=== PATIENT | female | born 1970 | race African-American/Black ===

== ENCOUNTER 2018-12-30 08:47 | Inpatient (IN) | payer MEDICAID ==
[~2018-12-30] VITALS: Ht 157.5 cm; Wt 81.4 kg
[2018-12-30] MEDS ORDERED: SODIUM CHLORIDE 0.9% 1,000 ML IV ONE (10:53)
[2018-12-30] MEDS ORDERED: FAMOTIDINE 20MG/2ML VIAL IV STA (10:53)
[2018-12-30] MEDS ORDERED: KETOROLAC 30MG/ML VIAL IV STA (10:53)
[2018-12-30] MEDS ORDERED: MAGNESIUM/ALUMINUM HYDROXIDE/SIMETHICONE 30ML UDC PO STA (10:53)
[2018-12-30] MEDS ORDERED: ONDANSETRON HCL 4MG/2ML INJ IV STA ×2 (10:53→14:09)
[2018-12-30] MEDS ORDERED: DICYCLOMINE 10 MG/5 ML ORAL SYR PO STA (10:53)
[2018-12-30 11:10] LABS: CLARITY URINE CLOUDY (CLEAR); COLOR URINE DARK YELLOW (YELLOW); KETONES URINE TRACE (NEGATIVE); LEUKOCYTE ESTERASE URINE NEGATIVE (NEGATIVE); NITRITE URINE NEGATIVE (NEGATIVE); OCCULT BLOOD URINE NEGATIVE (NEGATIVE); PH URINE 5.5 (4.5-8.0); PROTEIN URINE 1+ (NEGATIVE); SPECIFIC GRAVITY URINE 1.028 (1.005-1.030)
[2018-12-30 11:42] LABS: BASOPHILS % 0.3 % (0.0-2.0); EOSINOPHILS % 1.8 % (0.0-5.0); HEMATOCRIT. 42.6 % (36.0-48.0); HEMOGLOBIN. 14.8 g/dL (12.0-16.0); LYMPHOCYTES % 29.1 % (20.0-50.0); MEAN CORPUSCULAR HEMOGLOBIN 32.5 pg (28.0-32.0); MEAN CORPUSCULAR VOLUME 93.5 fL (81.0-99.0); MEAN PLATELET VOLUME 7.4 fl (7.4-10.4); MONOCYTES % 8.7 % (2.0-8.0); NEUTROPHILS % 60.1 % (40.0-76.0); PLATELET 268 x1000/uL (130-400); RED BLOOD CELL COUNT 4.56 mill/uL (4.2-5.4); RED CELL DISTRIBUTION WIDTH 13.7 % (11.6-14.6)
[2018-12-30 11:44] LABS: CHLORIDE 104 mEq/L (98-107)
[2018-12-30] MEDS ORDERED: MORPHINE SULFATE 4 MG/ML CPJ (NOT FOR IM USE) IV STA (14:09)
[2018-12-30] MEDS ORDERED: DOCUSATE SODIUM 100MG CAPSULE PO PRN (20:30)
[2018-12-30] MEDS ORDERED: CLONIDINE 0.1MG TABLET PO PRN (20:30)
[2018-12-30] MEDS ORDERED: ACETAMINOPHEN 325MG TABLET PO PRN (20:30)
[2018-12-30] MEDS ORDERED: MAGNESIUM/ALUMINUM HYDROXIDE/SIMETHICONE 30ML UDC PO PRN (20:30)
[2018-12-30] MEDS ORDERED: ONDANSETRON HCL 4MG/2ML INJ IV PRN (20:30)
[2018-12-30] MEDS ORDERED: IPRATROPIUM/ALBUTEROL 0.5-3(2.5)MG/3ML NEB INH PRN (20:30)
[2018-12-30] MEDS: HYDROCODONE/ACETAMINOPHEN 5/325MG TABLET PO PRN (20:37)
[2018-12-30 21:41] VITALS: BP 133/67
[2018-12-30] MEDS ORDERED: FAMO-135 PO (23:38)
[2018-12-30 23:40] VITALS: BP 133/67
[2018-12-31] VITALS (7 sets, daily range): BP systolic 104–125; BP diastolic 51–74
[2018-12-31 00:09] LABS: CREATINE KINASE 59 IU/L (26-192)
[2018-12-31 00:10] LABS: CREATINE KINASE MB FRACTION < 1.0 ng/mL (0.5-3.6)
[2018-12-31] MEDS ORDERED: SODIUM CHLORIDE 0.9% 1,000 ML IV SCH (00:49)
[2018-12-31 03:37] LABS: *AMPHETAMINES SCREEN URINE NEGATIVE (NEGATIVE); *BARBITURATES SCREEN URINE NEGATIVE (NEGATIVE); *BENZODIAZEPINES SCREEN URINE NEGATIVE (NEGATIVE); *COCAINE SCREEN URINE NEGATIVE (NEGATIVE)
[2018-12-31 03:38] LABS: CANNABINOID URINE SCREEN NEGATIVE (NEGATIVE); METHADONE URINE SCREEN NEGATIVE (NEGATIVE); OPIATES URINE SCREEN PRESUMTIVE POSITIVE (NEGATIVE); PHENCYCLIDINE URINE SCREEN NEGATIVE (NEGATIVE)
[2018-12-31 08:07] LABS: CHLORIDE 108 mEq/L (98-107)
[2018-12-31 08:11] LABS: BASOPHILS % 0.4 % (0.0-2.0); EOSINOPHILS % 3.6 % (0.0-5.0); HEMATOCRIT. 38.6 % (36.0-48.0); HEMOGLOBIN. 13.3 g/dL (12.0-16.0); LYMPHOCYTES % 41.2 % (20.0-50.0); MEAN CORPUSCULAR HEMOGLOBIN 32.5 pg (28.0-32.0); MEAN CORPUSCULAR VOLUME 94.1 fL (81.0-99.0); MEAN PLATELET VOLUME 7.3 fl (7.4-10.4); MONOCYTES % 10.2 % (2.0-8.0); NEUTROPHILS % 44.6 % (40.0-76.0); PLATELET 236 x1000/uL (130-400); RED CELL DISTRIBUTION WIDTH 13.8 % (11.6-14.6)
[2018-12-31 08:17] LABS: LDL CHOLESTEROL 105 mg/dL (5-100)
[2018-12-31 08:18] LABS: CREATINE KINASE 61 IU/L (26-192); HDL CHOLESTEROL 39 mg/dL (40-59)
[2018-12-31 08:23] LABS: CREATINE KINASE MB FRACTION < 1.0 ng/mL (0.5-3.6)
[2018-12-31] MEDS: ENOXAPARIN 40MG/0.4ML SYR SUBCUT SCH (09:00)
[2018-12-31] MEDS: HYDROCODONE/ACETAMINOPHEN 5/325MG TABLET PO PRN (09:42)
[2018-12-31] MEDS: OMEPRAZOLE 20MG CAPSULE EXTENDED RELEASE PO SCH ×2 (13:09→20:27)
[2018-12-31] MEDS: MORPHINE SULFATE 2 MG/ML CPJ (NOT FOR IM USE) IV PRN ×2 (16:12→20:29)
[2019-01-01 00:07] VITALS: BP 106/64
[2019-01-01 04:11] VITALS: BP 121/77
[2019-01-01] MEDS: OMEPRAZOLE 20MG CAPSULE EXTENDED RELEASE PO SCH (06:31)
[2019-01-01] MEDS: MORPHINE SULFATE 2 MG/ML CPJ (NOT FOR IM USE) IV PRN (07:00)
[2019-01-01 07:15] LABS: BASOPHILS % 0.4 % (0.0-2.0); EOSINOPHILS % 2.7 % (0.0-5.0); HEMATOCRIT. 39.9 % (36.0-48.0); HEMOGLOBIN. 13.8 g/dL (12.0-16.0); LYMPHOCYTES % 32.7 % (20.0-50.0); MEAN CORPUSCULAR HEMOGLOBIN 32.7 pg (28.0-32.0); MEAN CORPUSCULAR VOLUME 94.4 fL (81.0-99.0); MEAN PLATELET VOLUME 7.2 fl (7.4-10.4); MONOCYTES % 9.8 % (2.0-8.0); NEUTROPHILS % 54.4 % (40.0-76.0); PLATELET 248 x1000/uL (130-400); RED BLOOD CELL COUNT 4.23 mill/uL (4.2-5.4); RED CELL DISTRIBUTION WIDTH 13.4 % (11.6-14.6)
[2019-01-01 07:48] LABS: CHLORIDE 108 mEq/L (98-107)
[2019-01-01 08:00] VITALS: BP 120/75
[2019-01-01] MEDS: ENOXAPARIN 40MG/0.4ML SYR SUBCUT SCH (08:40)
[2019-01-01] MEDS ORDERED: NICOTINE 7MG PATCH TD SCH (09:00)
[2019-01-01 10:31] VITALS: BP 120/75
[2019-01-01 12:00] VITALS: BP 122/76
== END 2019-01-01 14:59 | disposition home or self-care (01) | DRG 282 ==
LOC: ER 08:47 → 6WST 16:17 → EDBEDREQ 16:19 → ENRESERV 20:39
PROVIDERS: ADMIT Internal Medicine; ATTEND Internal Medicine
DX: K86.9 Disease of pancreas, unspecified (principal); K76.89 Other specified diseases of liver; N28.1 Cyst of kidney, acquired; I45.10 Unspecified right bundle-branch block; K21.9 Gastro-esophageal reflux disease without esophagitis; F17.210 Nicotine dependence, cigarettes, uncomplicated; J44.9 Chronic obstructive pulmonary disease, unspecified; D72.821 Monocytosis (symptomatic); K80.20 Calculus of gallbladder without cholecystitis without obstruction; R80.9 Proteinuria, unspecified
CPT/HCPCS: 36415; 74176; 74181; 80048; 80061; 80305; 82378; 82550; 82553; 83735; 84443; 84484; 86304; 93005; 93970; 96361; 96374; 99285; J1650; J1885; J2270; J2405; J3490; J7030

== ENCOUNTER 2019-02-15 11:01 | Inpatient (IN) | payer MEDICAID ==
[~2019-02-15] VITALS: Ht 157.5 cm; Wt 72.1 kg
[~2019-02-15 11:01] MED LIST: FAMO-135 PO
[2019-02-15] MEDS ORDERED: PANTOPRAZOLE SODIUM 40 MG/VIAL IV STA (11:59)
[2019-02-15] MEDS ORDERED: ACETAMINOPHEN 325MG TABLET PO STA (11:59)
[2019-02-15] MEDS ORDERED: ONDANSETRON HCL 4MG/2ML INJ IV STA (11:59)
[2019-02-15] MEDS ORDERED: MAGNESIUM/ALUMINUM HYDROXIDE/SIMETHICONE 30ML UDC PO STA (11:59)
[2019-02-15] MEDS ORDERED: SODIUM CHLORIDE 0.9% 1,000 ML IV ONE (11:59)
[2019-02-15 12:24] LABS: BASOPHILS % 0.5 % (0.0-2.0); EOSINOPHILS % 6.8 % (0.0-5.0); HEMATOCRIT. 39.7 % (36.0-48.0); HEMOGLOBIN. 13.8 g/dL (12.0-16.0); LYMPHOCYTES % 34.1 % (20.0-50.0); MEAN CORPUSCULAR HEMOGLOBIN 32.6 pg (28.0-32.0); MEAN CORPUSCULAR VOLUME 93.9 fL (81.0-99.0); MEAN PLATELET VOLUME 7.3 fl (7.4-10.4); MONOCYTES % 8.6 % (2.0-8.0); PLATELET 262 x1000/uL (130-400); RED BLOOD CELL COUNT 4.23 mill/uL (4.2-5.4)
[2019-02-15 12:31] LABS: CHLORIDE 102 mEq/L (98-107)
[2019-02-15] MEDS ORDERED: KETOROLAC 15MG/ML VIAL IV ONE (15:00)
[2019-02-15] MEDS ORDERED: METOCLOPRAMIDE HCL 10MG/2ML VIAL IV ONE (15:00)
[2019-02-15] MEDS ORDERED: IOHEXOL-300 100 ML BOTTLE ONE (17:59)
[2019-02-15] MEDS ORDERED: MORPHINE SULFATE 4 MG/ML CPJ (NOT FOR IM USE) IV ONE (18:30)
[2019-02-15] MEDS ORDERED: CLONIDINE 0.1MG TABLET PO PRN (20:30)
[2019-02-15] MEDS ORDERED: MAGNESIUM/ALUMINUM HYDROXIDE/SIMETHICONE 30ML UDC PO PRN (20:30)
[2019-02-15] MEDS ORDERED: IPRATROPIUM/ALBUTEROL 0.5-3(2.5)MG/3ML NEB INH PRN (20:30)
[2019-02-15] MEDS ORDERED: DOCUSATE SODIUM 100MG CAPSULE PO PRN (20:30)
[2019-02-15] MEDS ORDERED: ACETAMINOPHEN 325MG TABLET PO PRN (20:30)
[2019-02-15] MEDS ORDERED: HYDROCODONE/ACETAMINOPHEN 5/325MG TABLET PO PRN (20:30)
[2019-02-15] MEDS ORDERED: GUAIFENESIN 200MG/10ML SUGAR FREE UDC PO PRN (20:30)
[2019-02-15 21:00] VITALS: BP 146/80
[2019-02-15] MEDS ORDERED: LISI2.5T47 MT (21:22)
[2019-02-15 22:16] VITALS: BP 146/80
[2019-02-15] MEDS: MORPHINE SULFATE 4 MG/ML CPJ (NOT FOR IM USE) IV PRN (22:53)
[2019-02-16] VITALS: BP 114/68
[2019-02-16 01:29] LABS: CREATINE KINASE 69 IU/L (26-192)
[2019-02-16 01:30] LABS: CREATINE KINASE MB FRACTION < 1.0 ng/mL (0.5-3.6)
[2019-02-16 04:00] VITALS: BP 114/78
[2019-02-16] MEDS: MORPHINE SULFATE 4 MG/ML CPJ (NOT FOR IM USE) IV PRN ×3 (05:01→17:27)
[2019-02-16 07:15] LABS: BASOPHILS % 0.4 % (0.0-2.0); EOSINOPHILS % 6.6 % (0.0-5.0); HEMATOCRIT. 35.8 % (36.0-48.0); HEMOGLOBIN. 12.5 g/dL (12.0-16.0); LYMPHOCYTES % 36.6 % (20.0-50.0); MEAN CORPUSCULAR VOLUME 94.4 fL (81.0-99.0); MEAN PLATELET VOLUME 7.3 fl (7.4-10.4); MONOCYTES % 10.7 % (2.0-8.0); NEUTROPHILS % 45.7 % (40.0-76.0); PLATELET 229 x1000/uL (130-400); RED CELL DISTRIBUTION WIDTH 13.9 % (11.6-14.6)
[2019-02-16 07:24] LABS: CHLORIDE 107 mEq/L (98-107)
[2019-02-16 07:32] LABS: LDL CHOLESTEROL 90 mg/dL (5-100)
[2019-02-16 07:33] LABS: CREATINE KINASE 60 IU/L (26-192)
[2019-02-16 07:34] LABS: HDL CHOLESTEROL 44 mg/dL (40-59)
[2019-02-16 07:36] LABS: CREATINE KINASE MB FRACTION < 1.0 ng/mL (0.5-3.6)
[2019-02-16 08:00] VITALS: BP 137/83
[2019-02-16] MEDS: ENOXAPARIN 40MG/0.4ML SYR SUBCUT SCH (09:31)
[2019-02-16 12:00] VITALS: BP 154/93
[2019-02-16] MEDS ORDERED: POTASSIUM CHLORIDE 20MEQ/PACKET PO NR (15:30)
[2019-02-16 16:00] VITALS: BP 125/95
[2019-02-16 20:00] VITALS: BP 141/95
[2019-02-17] VITALS: BP 123/80
[2019-02-17 04:00] VITALS: BP 136/72
[2019-02-17] MEDS: ONDANSETRON HCL 4MG/2ML INJ IV PRN (09:22)
[2019-02-17] MEDS: ENOXAPARIN 40MG/0.4ML SYR SUBCUT SCH (09:22)
[2019-02-17] MEDS: MORPHINE SULFATE 4 MG/ML CPJ (NOT FOR IM USE) IV PRN ×3 (09:22→18:37)
[2019-02-17 20:00] VITALS: BP 133/62
[2019-02-18] VITALS: BP 138/80
[2019-02-18] MEDS: MORPHINE SULFATE 4 MG/ML CPJ (NOT FOR IM USE) IV PRN ×5 (00:48→23:02)
[2019-02-18 04:00] VITALS: BP 135/78
[2019-02-18 07:19] LABS: BASOPHILS % 0.4 % (0.0-2.0); EOSINOPHILS % 6.7 % (0.0-5.0); HEMATOCRIT. 36.7 % (36.0-48.0); HEMOGLOBIN. 12.7 g/dL (12.0-16.0); MEAN CORPUSCULAR HEMOGLOBIN 32.7 pg (28.0-32.0); MEAN PLATELET VOLUME 7.2 fl (7.4-10.4); MONOCYTES % 11.3 % (2.0-8.0); NEUTROPHILS % 49.6 % (40.0-76.0); PLATELET 238 x1000/uL (130-400); RED BLOOD CELL COUNT 3.87 mill/uL (4.2-5.4)
[2019-02-18 07:25] LABS: CHLORIDE 106 mEq/L (98-107)
[2019-02-18] MEDS: ENOXAPARIN 40MG/0.4ML SYR SUBCUT SCH (09:22)
[2019-02-18 12:00] VITALS: BP 141/70
[2019-02-18] MEDS: HYDROCODONE/ACETAMINOPHEN 10/325MG TABLET PO PRN (15:47)
[2019-02-18 16:00] VITALS: BP 133/75
[2019-02-18 20:00] VITALS: BP 146/79
[2019-02-18 21:58] LABS: INR 1.1; PROTHROMBIN TIME 11.3 sec (9.6-11.0)
[2019-02-19] VITALS: BP 132/75
[2019-02-19 04:00] VITALS: BP 130/70
[2019-02-19] MEDS: MORPHINE SULFATE 4 MG/ML CPJ (NOT FOR IM USE) IV PRN ×5 (04:14→22:06)
[2019-02-19] MEDS: SODIUM CHLORIDE 0.9% 1,000 ML IV SCH ×2 (04:15→19:48)
[2019-02-19] MEDS: ENOXAPARIN 40MG/0.4ML SYR SUBCUT SCH (08:58)
[2019-02-19 20:00] VITALS: BP 137/81
[2019-02-20] VITALS: BP 130/72
[2019-02-20] MEDS: MORPHINE SULFATE 4 MG/ML CPJ (NOT FOR IM USE) IV PRN ×4 (02:43→19:59)
[2019-02-20 04:00] VITALS: BP 129/95
[2019-02-20 06:52] LABS: CHLORIDE 106 mEq/L (98-107)
[2019-02-20 07:17] LABS: BASOPHILS % 0.4 % (0.0-2.0); EOSINOPHILS % 5.4 % (0.0-5.0); HEMATOCRIT. 36.3 % (36.0-48.0); HEMOGLOBIN. 12.4 g/dL (12.0-16.0); LYMPHOCYTES % 29.5 % (20.0-50.0); MEAN CORPUSCULAR HEMOGLOBIN 32.6 pg (28.0-32.0); MEAN CORPUSCULAR VOLUME 95.3 fL (81.0-99.0); MEAN PLATELET VOLUME 7.2 fl (7.4-10.4); MONOCYTES % 10.6 % (2.0-8.0); NEUTROPHILS % 54.1 % (40.0-76.0); PLATELET 258 x1000/uL (130-400); RED BLOOD CELL COUNT 3.81 mill/uL (4.2-5.4); RED CELL DISTRIBUTION WIDTH 13.9 % (11.6-14.6)
[2019-02-20] MEDS: ENOXAPARIN 40MG/0.4ML SYR SUBCUT SCH (09:41)
[2019-02-20] MEDS: HYDROCODONE/ACETAMINOPHEN 10/325MG TABLET PO PRN ×3 (10:00→23:07)
[2019-02-20] MEDS: SODIUM CHLORIDE 0.9% 1,000 ML IV SCH ×2 (19:49→19:50)
[2019-02-20 20:55] VITALS: BP 127/74
[2019-02-21] VITALS (17 sets, daily range): BP systolic 105–144; BP diastolic 64–87
[2019-02-21] MEDS: MORPHINE SULFATE 4 MG/ML CPJ (NOT FOR IM USE) IV PRN ×5 (02:59→22:24)
[2019-02-21] MEDS: HYDROCODONE/ACETAMINOPHEN 10/325MG TABLET PO PRN ×2 (05:28→16:00)
[2019-02-21] MEDS: BLOOD SUGAR DIAGNOSTIC STRIP TEST SCH ×4 (06:38→21:03)
[2019-02-21] MEDS ORDERED: DEXTROSE 50% WATER 50ML SYRINGE IV PRN (06:45)
[2019-02-21 07:06] LABS: BASOPHILS % 0.4 % (0.0-2.0); EOSINOPHILS % 6.2 % (0.0-5.0); HEMATOCRIT. 35.9 % (36.0-48.0); HEMOGLOBIN. 12.7 g/dL (12.0-16.0); LYMPHOCYTES % 28.1 % (20.0-50.0); MEAN CORPUSCULAR HEMOGLOBIN 33.8 pg (28.0-32.0); MEAN CORPUSCULAR VOLUME 95.6 fL (81.0-99.0); MEAN PLATELET VOLUME 7.1 fl (7.4-10.4); MONOCYTES % 10.7 % (2.0-8.0); NEUTROPHILS % 54.6 % (40.0-76.0); PLATELET 236 x1000/uL (130-400); RED BLOOD CELL COUNT 3.76 mill/uL (4.2-5.4); RED CELL DISTRIBUTION WIDTH 13.9 % (11.6-14.6)
[2019-02-21 07:27] LABS: CHLORIDE 105 mEq/L (98-107)
[2019-02-21 07:50] LABS: INR 1.1; PARTIAL THROMBOPLASTIN TIME 26.6 sec (23.4-31.0); PROTHROMBIN TIME 11.1 sec (9.6-11.0)
[2019-02-21] MEDS: INSULIN LISPRO 100 UNITS/ML SUBCUT SCH ×4 (07:50→21:00)
[2019-02-21] MEDS ORDERED: FENTANYL CITRATE/PF 50MCG/ML 2ML VIAL ONE (09:10)
[2019-02-21] MEDS ORDERED: LIDOCAINE HCL 1% 20ML VIAL (Pyxis) INJ ONE (09:28)
[2019-02-21] MEDS ORDERED: SODIUM BICARBONATE 4% (2.4MEQ) 5ML VIAL IV ONE (09:29)
[2019-02-21] MEDS ORDERED: FENTANYL CITRATE/PF 50MCG/ML 2ML VIAL IV ONE (10:00)
[2019-02-21] MEDS: SODIUM CHLORIDE 0.9% 1,000 ML IV SCH (11:52)
[2019-02-21 17:47] LABS: HEMATOCRIT 37.7 % (36.0-48.0); HEMOGLOBIN 12.8 g/dL (12.0-16.0)
[2019-02-22] VITALS: BP 111/87
[2019-02-22] MEDS: SODIUM CHLORIDE 0.9% 1,000 ML IV SCH ×3 (02:39→23:34)
[2019-02-22] MEDS: MORPHINE SULFATE 4 MG/ML CPJ (NOT FOR IM USE) IV PRN ×5 (02:56→23:28)
[2019-02-22 04:00] VITALS: BP 116/52
[2019-02-22] MEDS: BLOOD SUGAR DIAGNOSTIC STRIP TEST SCH ×4 (07:20→21:12)
[2019-02-22] MEDS: INSULIN LISPRO 100 UNITS/ML SUBCUT SCH ×4 (07:50→21:00)
[2019-02-22] MEDS: ONDANSETRON HCL 4MG/2ML INJ IV PRN (10:12)
[2019-02-22] MEDS: HYDROCODONE/ACETAMINOPHEN 10/325MG TABLET PO PRN ×3 (10:12→21:08)
[2019-02-22 20:00] VITALS: BP 119/78
[2019-02-23] VITALS: BP 132/86
[2019-02-23 04:00] VITALS: BP 118/65
[2019-02-23] MEDS: MORPHINE SULFATE 4 MG/ML CPJ (NOT FOR IM USE) IV PRN ×4 (04:12→20:52)
[2019-02-23] MEDS: HYDROCODONE/ACETAMINOPHEN 10/325MG TABLET PO PRN ×3 (06:34→18:32)
[2019-02-23] MEDS: BLOOD SUGAR DIAGNOSTIC STRIP TEST SCH ×4 (06:51→21:00)
[2019-02-23 07:03] LABS: BASOPHILS % 0.4 % (0.0-2.0); HEMATOCRIT. 36.7 % (36.0-48.0); HEMOGLOBIN. 12.5 g/dL (12.0-16.0); LYMPHOCYTES % 22.6 % (20.0-50.0); MEAN CORPUSCULAR HEMOGLOBIN 32.7 pg (28.0-32.0); MEAN CORPUSCULAR VOLUME 95.9 fL (81.0-99.0); MEAN PLATELET VOLUME 7.4 fl (7.4-10.4); MONOCYTES % 10.7 % (2.0-8.0); NEUTROPHILS % 60.3 % (40.0-76.0); PLATELET 234 x1000/uL (130-400); RED BLOOD CELL COUNT 3.83 mill/uL (4.2-5.4); RED CELL DISTRIBUTION WIDTH 13.9 % (11.6-14.6)
[2019-02-23 07:32] LABS: CHLORIDE 104 mEq/L (98-107)
[2019-02-23] MEDS: INSULIN LISPRO 100 UNITS/ML SUBCUT SCH ×4 (07:50→20:59)
[2019-02-23 08:00] VITALS: BP 125/81
[2019-02-23] MEDS: ONDANSETRON HCL 4MG/2ML INJ IV PRN (11:34)
[2019-02-23 12:00] VITALS: BP 129/71
[2019-02-23] MEDS: BISACODYL 5MG TABLET PO SCH (12:20)
[2019-02-23] MEDS: METOCLOPRAMIDE HCL 10MG/2ML VIAL IV SCH ×2 (12:20→17:32)
[2019-02-23] MEDS ORDERED: POTASSIUM CHLORIDE 20MEQ/PACKET PO NR (15:00)
[2019-02-23] MEDS: SODIUM CHLORIDE 0.9% 1,000 ML IV SCH (16:08)
[2019-02-23 20:00] VITALS: BP 133/66
[2019-02-24] VITALS: BP_SYST 138; BP_SYST 153; BP_DIAS 69; BP_DIAS 88
[2019-02-24] MEDS: METOCLOPRAMIDE HCL 10MG/2ML VIAL IV SCH ×5 (00:16→23:26)
[2019-02-24] MEDS: HYDROCODONE/ACETAMINOPHEN 10/325MG TABLET PO PRN ×2 (00:17→15:46)
[2019-02-24 04:00] VITALS: BP 126/71
[2019-02-24] MEDS: MORPHINE SULFATE 4 MG/ML CPJ (NOT FOR IM USE) IV PRN ×5 (04:49→23:27)
[2019-02-24 05:58] LABS: CHLORIDE 103 mEq/L (98-107)
[2019-02-24 06:32] LABS: BASOPHILS % 0.3 % (0.0-2.0); EOSINOPHILS % 4.7 % (0.0-5.0); HEMATOCRIT. 35.8 % (36.0-48.0); HEMOGLOBIN. 12.3 g/dL (12.0-16.0); LYMPHOCYTES % 24.2 % (20.0-50.0); MEAN CORPUSCULAR HEMOGLOBIN 32.8 pg (28.0-32.0); MEAN CORPUSCULAR VOLUME 95.7 fL (81.0-99.0); MEAN PLATELET VOLUME 7.5 fl (7.4-10.4); MONOCYTES % 11.6 % (2.0-8.0); NEUTROPHILS % 59.2 % (40.0-76.0); PLATELET 231 x1000/uL (130-400); RED BLOOD CELL COUNT 3.74 mill/uL (4.2-5.4)
[2019-02-24] MEDS: BLOOD SUGAR DIAGNOSTIC STRIP TEST SCH (06:43)
[2019-02-24] MEDS: INSULIN LISPRO 100 UNITS/ML SUBCUT SCH (07:50)
[2019-02-24] MEDS: ONDANSETRON HCL 4MG/2ML INJ IV PRN (08:34)
[2019-02-24] MEDS: BISACODYL 5MG TABLET PO SCH (08:34)
[2019-02-24] MEDS ORDERED: BISACODYL 5MG TABLET PO PRN (11:30)
[2019-02-24] MEDS: SODIUM CHLORIDE 0.9% 1,000 ML IV SCH (17:45)
[2019-02-24] MEDS: ENOXAPARIN 40MG/0.4ML SYR SUBCUT SCH (18:15)
[2019-02-24 20:00] VITALS: BP 139/86
[2019-02-24] MEDS: MORPHINE SULFATE 15MG TABLET SR PO SCH (20:06)
[2019-02-25] VITALS: BP 153/88
[2019-02-25] MEDS: MORPHINE SULFATE 4 MG/ML CPJ (NOT FOR IM USE) IV PRN ×2 (03:41→11:54)
[2019-02-25 04:00] VITALS: BP 137/87
[2019-02-25] MEDS: METOCLOPRAMIDE HCL 10MG/2ML VIAL IV SCH ×4 (05:38→23:39)
[2019-02-25 08:00] VITALS: BP 132/79
[2019-02-25] MEDS: ENOXAPARIN 40MG/0.4ML SYR SUBCUT SCH (08:27)
[2019-02-25] MEDS: SODIUM CHLORIDE 0.9% 1,000 ML IV SCH (08:27)
[2019-02-25] MEDS: MORPHINE SULFATE 15MG TABLET SR PO SCH ×2 (08:28→20:48)
[2019-02-25 12:00] VITALS: BP 124/75
[2019-02-25] MEDS ORDERED: ONDANSETRON 4MG ODT PO PRN (13:30)
[2019-02-25] MEDS: HYDROCODONE/ACETAMINOPHEN 10/325MG TABLET PO PRN ×3 (15:14→23:40)
[2019-02-25 16:00] VITALS: BP 120/74
[2019-02-25 20:00] VITALS: BP 135/85
[2019-02-26] VITALS: BP 132/82
[2019-02-26] MEDS: SODIUM CHLORIDE 0.9% 1,000 ML IV SCH ×2 (03:41→10:50)
[2019-02-26] MEDS: HYDROCODONE/ACETAMINOPHEN 10/325MG TABLET PO PRN ×2 (03:42→10:51)
[2019-02-26 04:00] VITALS: BP 118/77
[2019-02-26] MEDS: METOCLOPRAMIDE HCL 10MG/2ML VIAL IV SCH (05:53)
[2019-02-26 08:00] VITALS: BP 136/86
[2019-02-26] MEDS: ENOXAPARIN 40MG/0.4ML SYR SUBCUT SCH (08:00)
[2019-02-26] MEDS: MORPHINE SULFATE 15MG TABLET SR PO SCH (08:01)
[2019-02-26] MEDS ORDERED: HYDR-4009 PO (11:00)
[2019-02-26] MEDS ORDERED: ONDA4TAB11 PO (11:00)
[2019-02-26] MEDS ORDERED: MSCON15 PO (11:00)
[2019-02-26] MEDS ORDERED: METO-293 MT (11:00)
[2019-02-26 11:38] VITALS: BP 119/78
== END 2019-02-26 12:26 | disposition home or self-care (01) | DRG 281 ==
LOC: ER 11:01 → 6EST 19:04 → EDBEDREQ 19:12 → ENRESERV 20:02
PROVIDERS: ADMIT Internal Medicine; ATTEND Internal Medicine
PROC: 0FBG3ZX Excision of Pancreas, Percutaneous Approach, Diagnostic (ICD-10-PCS; principal; 2019-02-15)
DX: C25.9 Malignant neoplasm of pancreas, unspecified (principal); G35 Multiple sclerosis; E87.6 Hypokalemia; G89.29 Other chronic pain; R10.9 Unspecified abdominal pain; F17.200 Nicotine dependence, unspecified, uncomplicated; I10 Essential (primary) hypertension; K21.9 Gastro-esophageal reflux disease without esophagitis; Z79.899 Other long term (current) drug therapy
CPT/HCPCS: 36415; 71045; 74177; 77012; 80048; 80061; 82550; 82553; 82962; 83735; 84100; 84443; 85014; 85018; 86301; 88307; 93005; 93970; 96361; 96374; 96375; 99285; C1893; C9113; J1650; J1885; J2270; J2405; J2765; J3010; J3490; J7030; J7040; J7050; Q9967